=== PATIENT | female | born 2000 | race Two or more races ===

== ENCOUNTER → 2020-04-28 | Outpatient (CLI) | payer OTHER | END | disposition home or self-care (01) | LOC: PRENATAL 15:00 | PROVIDERS: ATTEND Obstetrics & Gynecology Maternal & Fetal Medicine | DX: O35.0XX1 Maternal care for (suspected) central nervous system malformation in fetus, fetus 1 (principal); O98.512 Other viral diseases complicating pregnancy, second trimester; O35.3XX1 Maternal care for (suspected) damage to fetus from viral disease in mother, fetus 1; Z36.89 Encounter for other specified antenatal screening; Z3A.22 22 weeks gestation of pregnancy ==

== ENCOUNTER 2020-06-10 08:27 | Inpatient (IN) | payer OTHER ==
[~2020-06-10] VITALS: Ht 152.4 cm; Wt 63.5 kg
[2020-06-10] MEDS ORDERED: PRENATAL TABLE1 EAC1 PO (09:03)
== END 2020-06-18 16:27 | disposition home or self-care (01) | DRG 831 ==
LOC: OBS/DEL 08:27 → LDR 15:10 → OBS/DEL 15:10 → OB/GYN 06-13 11:01
PROVIDERS: ADMIT Obstetrics & Gynecology; ATTEND Obstetrics & Gynecology
PROC: BY4CZZZ Ultrasonography of Second Trimester, Single Fetus (ICD-10-PCS; principal; 2020-06-10)
PROC: 4A1HXCZ Monitoring of Products of Conception, Cardiac Rate, External Approach (ICD-10-PCS; 2020-06-10)
DX: O60.02 Preterm labor without delivery, second trimester (principal); O14.12 Severe pre-eclampsia, second trimester; O26.842 Uterine size-date discrepancy, second trimester; Z3A.27 27 weeks gestation of pregnancy

== ENCOUNTER 2020-07-02 17:15 | Outpatient (CLI) | payer OTHER ==
[~2020-07-02 17:15] MED LIST: PRENATAL TABLE1 EAC1 PO
[2020-07-02] MEDS ORDERED: CLEOCIN VAG (17:34)
== END 2020-07-02 17:43 | disposition home or self-care (01) ==
LOC: OBS/DEL 17:15
PROVIDERS: ATTEND Obstetrics & Gynecology
DX: O23.593 Infection of other part of genital tract in pregnancy, third trimester (principal)

== ENCOUNTER 2020-08-25 10:04 | Inpatient (IN) | payer OTHER ==
[~2020-08-25] VITALS: Ht 152.4 cm; Wt 67.6 kg
[~2020-08-25 10:04] MED LIST changes: +CLEOCIN VAG
[2020-08-25] MEDS ORDERED: PRENATAL TABLE1 EAC1 PO (11:59)
== END 2020-08-27 17:31 | disposition home or self-care (01) | DRG 768 ==
LOC: OBS/DEL 10:04 → LDR 12:02 → O/R 12:02 → OB/GYN 08-26 18:10
PROVIDERS: ADMIT Obstetrics & Gynecology; ATTEND Obstetrics & Gynecology
PROC: 0UQC7ZZ Repair Cervix, Via Natural or Artificial Opening (ICD-10-PCS; 2020-08-25)
PROC: 0KQM0ZZ Repair Perineum Muscle, Open Approach (ICD-10-PCS; 2020-08-25)
PROC: 4A1HXFZ Monitoring of Products of Conception, Cardiac Rhythm, External Approach (ICD-10-PCS; 2020-08-25)
PROC: 10E0XZZ Delivery of Products of Conception, External Approach (ICD-10-PCS; principal; 2020-08-25 18:00)
DX: O24.429 Gestational diabetes mellitus in childbirth, unspecified control (principal); Z37.0 Single live birth; O71.3 Obstetric laceration of cervix; O70.1 Second degree perineal laceration during delivery; Z3A.38 38 weeks gestation of pregnancy; Z20.828 Contact with and (suspected) exposure to other viral communicable diseases